=== PATIENT | female | born 1995 | race Caucasian/White ===

== ENCOUNTER 2016-12-22 18:42 | Inpatient (IN) | payer MEDICAID ==
[~2016-12-22] VITALS: Ht 160 cm; Wt 70.8 kg
[~2016-12-22 18:42] MED LIST: LIDOCAINE 2% 5 ML IV ONE
[2016-12-22 19:05] VITALS: Ht 160 cm; Wt 70.8 kg
[2016-12-22] MEDS ORDERED: LIDOCAINE 1% BUFFERED 1 ML SYR ONE (19:06)
[2016-12-22] MEDS ORDERED: TERBUTALINE 1 MG/ML VIAL SUBQ PRN (19:10)
[2016-12-22] MEDS ORDERED: LIDOCAINE 1% 30 ML PF INFILTRATE ONE (19:10)
[2016-12-22] MEDS ORDERED: METOCLOPRAMIDE 10 MG/2 ML VIAL IV PUSH PRN (19:10)
[2016-12-22] MEDS ORDERED: ALU/MAG/SIM 30 ML UDC PO PRN (19:10)
[2016-12-22] MEDS ORDERED: MORPHINE 5 MG/1 ML VIAL IV PRN (19:10)
[2016-12-22] MEDS ORDERED: FAMOTIDINE 20 MG INJ IV PRN (19:10)
[2016-12-22] MEDS ORDERED: LIDOCAINE 1% BUFFERED 1 ML SYR INTRADERM PRN (19:10)
[2016-12-22] MEDS ORDERED: ONDANSETRON 4 MG VIAL IV PRN (19:10)
[2016-12-22] MEDS ORDERED: PHARMACY TO DOSE GENTAMICIN IV PRN (19:10)
[2016-12-22] MEDS ORDERED: CLINDAMYCIN 900 MG in DEXTROSE 5% 50 ML IV PRN (19:10)
[2016-12-22] MEDS ORDERED: ACETAMINOPHEN 325 MG TAB PO PRN (19:10)
[2016-12-22] MEDS ORDERED: PROMETHAZINE 25 MG/ML VIAL IV PRN (19:10)
[2016-12-22] MEDS ORDERED: FAMOTIDINE 20 MG TAB PO PRN (19:10)
[2016-12-22] MEDS ORDERED: GENTAMICIN 300 MG in SODIUM CHLORIDE 0.9% 100 ML IV ONE (19:20)
[2016-12-22] MEDS: LACT RINGERS 1,000 ML IV SCH (22:24)
[2016-12-22] MEDS: OXYTOCIN 15 UNITS/250 ML NS 250 ML IV SCH (22:24)
[2016-12-23] VITALS (11 sets, daily range): BP systolic 89–130; RESP 14–18; TEMP 98.1–101.3
[2016-12-23] MEDS: LACT RINGERS 1,000 ML IV SCH ×3 (02:00→12:24)
[2016-12-23] MEDS: OXYTOCIN 15 UNITS/250 ML NS 250 ML IV SCH ×3 (04:23→14:25)
[2016-12-23] MEDS ORDERED: ROPIV/FENT 0.2%-2MCG/ML 100 ML EPIDURAL ONE (05:57)
[2016-12-23] MEDS ORDERED: FENTANYL 100 MCG/2 ML AMP ONE (05:57)
[2016-12-23] MEDS ORDERED: ROPIV/FENT 0.2%-2MCG/ML 100 ML EPIDURAL SCH (06:30)
[2016-12-23] MEDS ORDERED: LACT RINGERS 500 ML IV PRN (06:30)
[2016-12-23] MEDS ORDERED: FENTANYL 100 MCG/2 ML AMP EPIDURAL ONE (06:30)
[2016-12-23] MEDS ORDERED: LACT RINGERS 500 ML IV ONE (06:30)
[2016-12-23] MEDS ORDERED: SODIUM CHLORIDE 0.9% 500 ML IV PRN (06:30)
[2016-12-23] MEDS ORDERED: **ONLY ANESTEHSIA MAY ORDER OPIATES WHILE ON EPIDURAL XX SCH (08:00)
[2016-12-23] MEDS ORDERED: LIDOCAINE 1% 30 ML PF ONE (11:30)
[2016-12-23] MEDS: MISOPROSTOL 200 MCG TAB PO SCH ×2 (13:32→16:21)
[2016-12-23] MEDS ORDERED: DERMOPLAST SPRAY TOPICAL PRN (13:55)
[2016-12-23] MEDS ORDERED: OXYTOCIN 15 UNITS/250 ML NS 250 ML IV ONE (13:55)
[2016-12-23] MEDS ORDERED: MEASLES,MUMPS,RUBELLA VAC SUBQ.VACC ONE (13:55)
[2016-12-23] MEDS ORDERED: ZOLPIDEM 5 MG TAB PO PRN (13:55)
[2016-12-23] MEDS ORDERED: MAG HYDROX 30 ML UDC PO PRN (13:55)
[2016-12-23] MEDS ORDERED: TDaP 0.5 ML VIAL IM.VACC ONE (13:55)
[2016-12-23] MEDS: ASTRINGENT MED PADS 40'S TOPICAL PRN (15:33)
[2016-12-23] MEDS ORDERED: MISOPROSTOL 100 MCG TAB ONE (16:12)
[2016-12-23] MEDS: Ibuprofen 600 MG TAB PO SCH ×2 (18:37→23:24)
[2016-12-24 01:03] VITALS: BP_SYST 121; RESP 16; TEMP 97.6
[2016-12-24 05:30] VITALS: BP_SYST 108; RESP 14; TEMP 97.6
[2016-12-24] MEDS: Ibuprofen 600 MG TAB PO SCH ×4 (05:36→23:27)
[2016-12-24] MEDS: DOCUSATE SOD 100 MG CAP PO SCH (08:50)
[2016-12-24 09:05] VITALS: BP_SYST 123; RESP 20; TEMP 97.8
[2016-12-24 11:35] VITALS: BP_SYST 124; RESP 18
[2016-12-24 13:23] VITALS: BP_SYST 115; RESP 16; TEMP 98.1
[2016-12-24] MEDS ORDERED: SOD CHL NASAL SPR 45ML NARE EACH PRN (22:00)
[2016-12-24] MEDS: ASTRINGENT MED PADS 40'S TOPICAL PRN (23:35)
[2016-12-25] MEDS: Ibuprofen 600 MG TAB PO SCH ×2 (05:42→11:22)
[2016-12-25 06:16] VITALS: BP_SYST 107; RESP 16; TEMP 97.5
[2016-12-25] MEDS: DOCUSATE SOD 100 MG CAP PO SCH (09:57)
[2016-12-25 10:03] VITALS: BP_SYST 107; RESP 16; TEMP 97.5
== END 2016-12-25 14:17 | disposition home or self-care (01) | DRG 775 ==
LOC: LD 18:42 → OB 12-23 15:49
PROVIDERS: ADMIT Obstetrics & Gynecology; ATTEND Obstetrics & Gynecology Reproductive Endocrinology
PROC: 3E033VJ Introduction of Other Hormone into Peripheral Vein, Percutaneous Approach (ICD-10-PCS; 2016-12-22)
PROC: 10E0XZZ Delivery of Products of Conception, External Approach (ICD-10-PCS; principal; 2016-12-23)
PROC: 0HQ9XZZ Repair Perineum Skin, External Approach (ICD-10-PCS; 2016-12-23)
PROC: 10907ZC Drainage of Amniotic Fluid, Therapeutic from Products of Conception, Via Natural or Artificial Opening (ICD-10-PCS; 2016-12-23)
DX: O13.4 Gestational [pregnancy-induced] hypertension without significant proteinuria, complicating childbirth (principal); O70.0 First degree perineal laceration during delivery; Z37.0 Single live birth; Z3A.38 38 weeks gestation of pregnancy
CPT/HCPCS: 80053; 85025; 86850; 86870; 86900; 86901; 86970